=== PATIENT | male | born 1940 | race Caucasian/White ===

== ENCOUNTER → 2021-12-22 10:43 | Outpatient (CLI) | payer MEDICARE, OTHER, SELFPAY ==
--- NOTE | 2021-12-22 | DI.CT.S_ITS ---
PROCEDURE: CT CHEST HIGH RESOLUTION INDICATIONS: Shortness of breath TECHNIQUE: Noncontrast 1.0 and 5.0 mm thick contiguous axial sections from the pulmonary apex to the posterior costophrenic angles, with 7 mm thick coronal and sagittal MIP reformats. 1 mm thick dynamic expiratory images acquired through the upper, mid, and lower lungs. 1.0 mm thick axial sections acquired from the vincenzo to the posterior costophrenic angles in the prone end-inspiration position. For radiation dose reduction, the following was used: automated exposure control, adjustment of mA and/or kV according to patient size. COMPARISON: None. FINDINGS: Image quality: Excellent. Lungs and pleura: Multiple punctate calcifications are seen throughout both lung karimi consistent with prior granulomatous disease. No acute air space opacities. No pleural effusions or pneumothorax. Central and peripheral airways are patent and normal in caliber. Mediastinum: Heart size is normal. No pericardial effusion. No mediastinal adenopathy by size criteria. The aorta has atherosclerosis with no aneurysmal dilatation. Esophagus is normal in caliber. No hiatal hernia. Bones and chest wall: No suspicious bony lesions. No vertebral body compression fractures. No axillary or supraclavicular adenopathy by size criteria. Thyroid gland is normal. Abdomen: Limited visualization of the upper abdomen shows no acute abnormality. There is a small hiatal hernia. IMPRESSION: 1. No pulmonary fibrosis. 2. Punctate calcifications throughout both lung karimi consistent with prior granulomatous disease. Dictated by: Roland Rodriguez M.D. on 12/22/2021 at 14:51 Approved by: Roland Rodriguez M.D. on 12/22/2021 at 14:57
== END ==
PROVIDERS: PCP Physician Assistant Medical; Referring Provider Internal Medicine Pulmonary Disease; Visit Provider Internal Medicine Pulmonary Disease
DX: R06.02 Shortness of breath (principal); K44.9 Diaphragmatic hernia without obstruction or gangrene
CPT/HCPCS: 71250

== ENCOUNTER → 2024-10-02 09:17 | Outpatient (CLI) | payer MEDICARE, OTHER, SELFPAY | LOC: RESP 09:18 | PROVIDERS: PCP Physician Assistant Medical; Referring Provider Internal Medicine Pulmonary Disease; Visit Provider Internal Medicine Pulmonary Disease | DX: J84.9 Interstitial pulmonary disease, unspecified (principal); J98.4 Other disorders of lung; Z99.81 Dependence on supplemental oxygen; R94.2 Abnormal results of pulmonary function studies | CPT/HCPCS: 94060; 94618; 94726; 94729 ==

== ENCOUNTER → 2024-11-07 09:17 | Outpatient (CLI) | payer MEDICARE, OTHER, SELFPAY ==
--- NOTE | 2024-11-07 | DI.CT.S_ITS ---
PROCEDURE: CT CHEST HIGH RESOLUTION INDICATIONS: intersitital lung disease TECHNIQUE: Noncontrast 1.0 and 5.0 mm thick contiguous axial sections from the pulmonary apex to the posterior costophrenic angles, with 7 mm thick coronal and sagittal MIP reformats. 1 mm thick dynamic expiratory images acquired through the upper, mid, and lower lungs. 1.0 mm thick axial sections acquired from the vincenzo to the posterior costophrenic angles in the prone end-inspiration position. For radiation dose reduction, the following was used: automated exposure control, adjustment of mA and/or kV according to patient size. COMPARISON: [facility], CT, CT CHEST HIGH RESOLUTION, 12/22/2021, 10:53. FINDINGS: Image quality: Diagnostic Lungs and pleura: Moderate to severe diffuse air trapping. There are no changes on prone imaging. Moderate peripheral reticulation, slightly progressed. Traction bronchiectasis is present. No definite honeycombing, although there may be early cystic changes at the right costophrenic angle. Many small pulmonary nodules and probable granulomas are present, similar to prior. Mediastinum, heart, and esophagus: Normal heart size. Annular cardiac calcifications. No pathologic lymph nodes by size criteria. Pulmonary trunk is mildly distended at 3.1 cm, suggestive of high pulmonary pressures. Chest wall and thyroid: Gynecomastia. Unremarkable. Upper abdomen: Left upper pole renal cyst. Bones: There are degenerative changes. No aggressive appearing osseous abnormality. IMPRESSION: Moderate to severe diffuse air trapping, usually seen with chronic bronchiolitis, for example from hypersensitivity pneumonitis. Moderate reticular changes are also seen throughout the lungs involving the upper lobes and the lower lobes, indicating fibrosis, slightly worsened. Mild cystic changes are seen in the costophrenic angles, without honeycombing. Traction bronchiectasis also present. 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 (ATS 2018 HRCT classification: Indeterminate for UIP ILD) Many presumed pulmonary granulomas and pulmonary micro nodules are present, as before. In the setting of ILD, surveillance imaging is suggested. Dictated by: Edwin Louise M.D. on 11/07/2024 at 13:54 Approved by: Edwin Louise M.D. on 11/07/2024 at 14:02
== END ==
PROVIDERS: PCP Physician Assistant Medical; Referring Provider Internal Medicine Pulmonary Disease; Visit Provider Internal Medicine Pulmonary Disease
DX: J84.9 Interstitial pulmonary disease, unspecified (principal); J47.9 Bronchiectasis, uncomplicated; R91.8 Other nonspecific abnormal finding of lung field; I34.81 Nonrheumatic mitral (valve) annulus calcification; N28.1 Cyst of kidney, acquired; N62 Hypertrophy of breast
CPT/HCPCS: 71250